=== PATIENT | female | born 1950 | race Caucasian/White ===

== ENCOUNTER → 2016-10-15 | Outpatient (CLI) | payer MEDICARE ==
--- NOTE | 2016-10-15 09:50 | XR ---
EXAMINATION TYPE: XR KUB DATE OF EXAM: 10/15/2016 9:21 AM HISTORY: Pain Comparison: 02/19/2016 Single KUB is submitted for interpretation. Findings: Right renal calculi: Large calculus seen previously is no longer evident. Removal of the right ureter al stent. Right ureteral calculi: None Visualized. Left renal calculi: None Visualized. Left ureteral calculi: None Visualized. Pelvic calcifications: Multiple pelvic calcifications may in part reflect phlebolith formation. Bowel gas pattern is unremarkable. No free air. No mass effects. IMPRESSION: 1. Large right renal calculus seen previously is no longer evident. Removal of the right ureteral taylor nt.
== END | disposition home or self-care (01) ==
LOC: RADXRMAIN 09:01
PROVIDERS: ATTEND Urology
DX: N20.9 Urinary calculus, unspecified (principal)
CPT/HCPCS: 74000

== ENCOUNTER → 2021-05-27 | Outpatient (CLI) | payer MEDICARE ==
[2021-05-27 16:42] LABS: HCT 39.7 % (34.0-46.0); HGB 13.3 gm/dL (11.4-16.0); MCH 30.2 pg (25.0-35.0); MCHC 33.4 g/dL (31.0-37.0); MCV 90.4 fL (80.0-100.0); Mean Platelet Volume 7.3; Platelet Count 260 k/uL (150-450); RBC 4.39 m/uL (3.80-5.40); RDW 13.9 % (11.5-15.5); WBC 10.3 k/uL (3.8-10.6)
[2021-05-27 16:51] LABS: African American GFR (CKD) >90 (>60 ml/min/1.73 sqM); Anion Gap 6 mmol/L; Blood Urea Nitrogen 23 mg/dL (7-17); Carbon Dioxide 27 mmol/L (22-30); Chloride 105 mmol/L (98-107); Non-African American GFR(CKD) 79 (>60 ml/min/1.73 sqM); Potassium 4.4 mmol/L (3.5-5.1); Sodium 138 mmol/L (137-145)
== END | disposition home or self-care (01) ==
LOC: LABPAT 15:53
PROVIDERS: ATTEND Internal Medicine Cardiovascular Disease
DX: Z01.812 Encounter for preprocedural laboratory examination (principal); R06.02 Shortness of breath
CPT/HCPCS: 36415; 80051; 82565; 84520; 85027

== ENCOUNTER → 2021-06-05 | Day surgery (SDC) | payer MEDICARE ==
[2021-06-03 10:52] VITALS: BMI 35.5
[~2021-06-05] MED LIST: ALPRAZolam 0.25 MG TAB PO PRN; ALPRAZolam 0.5 MG TAB PO PRN; ASPIRIN 325 MG TAB PO ONE; ATORVASTATIN 80 MG TAB PO ONE; IOPAMIDOL-370 125ML BTL INJ ONE; LIDOCAINE 1% INJ 10MG/ML (20 ML MDV) ONE; LIDOCAINE 1% INJ 10MG/ML (20 ML MDV) SQ ONE; MIDAZOLAM 2 MG/2 ML VIAL IV ONE; NITROGLYCERIN SL TABS 0.4 MG TAB SUBLINGUAL PRN; RX INFO: IV CONTRAST WAS GIVEN 1 EACH MISC MISCELLANE PRN; SODIUM CHLORIDE 0.9% 1,000 ML IV SCH; SODIUM CHLORIDE 0.9% 1,000 ML in EMPTY BAG 1 BAG IV ONE; fentaNYL (PF) 50 MCG/ML 2 ML AMP IV ONE; fentaNYL (PF) 50 MCG/ML 2 ML AMP ONE
[2021-06-05 07:16] VITALS: TEMP 98.9
--- NOTE | 2021-06-05 09:22 | CC ---
CARDIAC CATHETERIZATION REPORT DATE OF SERVICE: 06/05/2021 INDICATION: Shortness of breath with abnormal stress test showing ischemia in diagonal distribution. PROCEDURE NOTE: After obtaining informed consent, left heart catheterization and coronary angiogram were performed via the right femoral artery using standard Krish catheters. The patient tolerated the procedure well without any obvious immediate complications. A femoral angiogram was performed and Angio-Seal will be deployed for hemostasis. Patient received moderate conscious sedation. Total sedation time was 12 minutes. FINDINGS: HEMODYNAMICS: Left ventricular end-diastolic pressure is 11 mm. There is no significant gradient across the aortic valve. LEFT VENTRICULOGRAM: Not performed. ANGIOGRAPHIC DATA: Left main coronary artery. Left main coronary artery is a normal-sized vessel and is free of stenosis. It divides into left anterior descending coronary artery and circumflex coronary artery. There is mild calcification of both the LAD and the circumflex coronary artery. Circumflex coronary artery, which is a codominant vessel, gives off a large-caliber OM branch that in its ostial portion has an atherosclerotic plaque which at its worst seems to be 40% to 50%. LAD has a large septal retail attendant that has 80% to 90% ostial stenosis mid LAD at the origin of the third diagonal branch has an atherosclerotic plaque of 40% to 50% stenosis. Right coronary artery is a codominant vessel and is free of significant stenosis. CONCLUSIONS: Mild to moderate nonobstructive coronary artery disease involving circumflex coronary artery and LAD. PLAN: The patient will be treated with optimal medical therapy and we will decide on further course of action based on how her symptoms evolve. MMODL / IJN: [id number] /
--- NOTE | 2021-06-05 09:26 | LTR ---
June 05, 2021 To: Dr. Jed Raines Re: Dejah Reno (46) Dear Anastasiya, I performed cardiac catheterization on Dejah Reno. A detailed catheterization note is enclosed for your records. In brief, the cardiac catheterization did not reveal significant obstructive CAD and patient does not require surgical or percutaneous revascularization at this time. She will be treated with optimal medical therapy. Thank you for giving me the privilege of participating in the care of this pleasant lady. Sincerely, John Ann M.D. DMITRY / TRISHA: [id number] /
[2021-06-05 15:39] VITALS: RESP 16
[2021-06-05 15:40] VITALS: BP 125/70; PULSE 72
== END ==
LOC: CATHCVL 06:10
PROVIDERS: ATTEND Internal Medicine Cardiovascular Disease
DX: I25.10 Atherosclerotic heart disease of native coronary artery without angina pectoris (principal)
CPT/HCPCS: 93458; 87635; C1760; C1894; C1769; J2250; J2001; J3010; Q9967

== ENCOUNTER 2023-08-10 08:56 | Day surgery (SDC) | payer MEDICARE ==
[2023-08-05 12:38] VITALS: BMI 33.0
[2023-08-10] MEDS ORDERED: SODIUM CHLORIDE 0.9% 500 ML 500 ML IV ONE (09:09)
[2023-08-10 09:51] VITALS: TEMP 98
[2023-08-10] MEDS ORDERED: fentaNYL (PF) 50 MCG/ML 2 ML AMP ONE (10:17)
[2023-08-10] MEDS ORDERED: BENZOCAINE SPRAY 1 CAN TOPICAL ONE (10:41)
[2023-08-10] MEDS ORDERED: MIDAZOLAM 2 MG/2 ML VIAL IVP ONE (10:47)
[2023-08-10] MEDS ORDERED: fentaNYL (PF) 50 MCG/ML 2 ML AMP IVP ONE (10:48)
[2023-08-10 10:55] VITALS: RESP 18
[2023-08-10] MEDS ORDERED: SODIUM CHLORIDE 0.9% 1,000 ML IV SCH (11:15)
--- NOTE | 2023-08-10 11:34 | ECHOT ---
TRANSESOPHAGEAL ECHOCARDIOGRAM INDICATION: TIA. PROCEDURE NOTE: After obtaining informed consent, transesophageal echocardiogram was performed in left lateral position using an Omniplane probe. Local and IV sedation were obtained. Total sedation time was 10 minutes. Xylocaine spray, Versed, and fentanyl were used. FINDINGS: 1. There is no intracardiac thrombus within the left atrial appendage, left atrium, right atrium, right ventricle, or left ventricle. 2. Left ventricular systolic function is normal. 3. There is no evidence of [id number] shunt by color-flow Doppler or [id number] shunt by agitated saline contrast study. 4. Mitral valve appears anatomically normal. There is poor coaptation of the mitral valve leaflets with moderate central mitral regurgitation. There is mild tricuspid regurgitation. Aortic valve is a 3-leaflet valve without any evidence of aortic stenosis or regurgitation. There is ectasia of aortic anulus. CONCLUSIONS: 1. No intracardiac thrombus. 2. No shunting. 3. Normal LV function. 4. Moderate mitral regurgitation. MMODL / IJN: [id number] /
[2023-08-10 12:21] VITALS: BP 121/63; PULSE 66
== END 2023-08-10 12:22 | disposition home or self-care (01) ==
LOC: CATHCVL 08:56
PROVIDERS: ATTEND Internal Medicine Cardiovascular Disease
DX: I34.0 Nonrheumatic mitral (valve) insufficiency (principal); I25.10 Atherosclerotic heart disease of native coronary artery without angina pectoris; E78.5 Hyperlipidemia, unspecified; I10 Essential (primary) hypertension; Z86.73 Personal history of transient ischemic attack (TIA), and cerebral infarction without residual deficits; Z79.899 Other long term (current) drug therapy
CPT/HCPCS: 93312; 93320; 93325; J2250; J3010

== ENCOUNTER → 2024-07-13 | Outpatient (CLI) | payer MEDICARE ==
[2024-07-13 12:32] LABS: African American GFR (CKD) >90 (>60 ml/min/1.73 sqM); Blood Urea Nitrogen 20 mg/dL (7-17); Non-African American GFR(CKD) 86 (>60 ml/min/1.73 sqM)
--- NOTE | 2024-07-13 13:33 | CT ---
EXAMINATION TYPE: CT angio head neck CT DLP: 1478.7 mGycm, Automated exposure control for dose reduction was used. DATE OF EXAM: 07/13/2024 1:13 PM COMPARISON: None. CLINICAL INDICATION:Female, 73 years old with history of G45.3 AMAUROSIS FUGAX; PHH, EYES SEE BLACKNE SS TECHNIQUE: Axially acquired helical CT angiogram of the head and neck was obtained with contrast util izing 75 cc of Isovue-370 administered intravenously. Axial images are supplemented with 3D reconstru ctions which were post-processed at an independent workstation. NASCET criteria used. FINDINGS: CTA HEAD: No evidence of acute intracranial hemorrhage, mass effect, or midline shift. The ventricles, sulci, a nd cisterns are unremarkable. The visualized portions of the internal carotid arteries, middle cerebral arteries, anterior cerebral arteries, and posterior cerebral arteries are patent. The basilar and vertebral arteries are patent. Dominant left vertebral artery and diminutive right ve rtebral artery. CTA NECK: Right Carotid System: The common carotid artery and external carotid artery are patent. The carotid bifurcation demonstrate s no evidence of hemodynamically significant stenosis. The remaining portions of the internal carotid artery demonstrate normal size without significant narrowing. Left Carotid System: The common carotid artery and external carotid artery are patent. The carotid bifurcation demonstrate s no evidence of hemodynamically significant stenosis. The remaining portions of the internal carotid artery demonstrate normal size without significant narrowing. Vertebral arteries are patent without evidence hemodynamically significant stenosis. There is a three-vessel aortic arch. The origins of the great vessels are patent. No evidence of hemo dynamically significant stenosis. Postsurgical changes of the ethmoid sinus and bilateral medial maxillary ponce. Bilateral aphakia. IMPRESSION: 1. No evidence of dissection of the cervical internal carotid arteries or vertebral arteries or any e vidence of significant stenosis at the carotid bifurcations. 2. No evidence of high-grade stenosis or intracranial aneurysm. [facility], , 07/13/2024 1:31 PM
== END | disposition home or self-care (01) ==
LOC: RADCTMAIN 11:37
PROVIDERS: ATTEND Psychiatry & Neurology Neurology
CPT/HCPCS: 36415; 70496; 70498; 82565; 84520